=== PATIENT | female | born 1985 | race Caucasian/White ===

== ENCOUNTER 2018-06-14 07:12 | Inpatient (IN) | payer MEDICAID, OTHER ==
[~2018-06-14] VITALS: Ht 160 cm; Wt 127.8 kg
[~2018-06-14 07:12] MED LIST: PNV1TABL4 PO
[2018-06-14 07:42] VITALS: Ht 160 cm; Wt 127.8 kg
[2018-06-14 07:50] VITALS: BP 118/64; PULSE 99; RESP 20
[2018-06-14] MEDS ORDERED: OXYTOCIN 30 UNITS/LR 500 ML IV PRN ×2 (08:00→15:30)
[2018-06-14] MEDS ORDERED: METHYLERGONOVINE 0.2 MG INJ IM PRN ×2 (08:00→15:30)
[2018-06-14] MEDS ORDERED: MISOPROSTOL 200 MCG TAB PR PRN ×2 (08:00→15:30)
[2018-06-14] MEDS ORDERED: CEFAZOLIN 3 GM in DEXTROSE 5% 100 ML IV SCH (08:00)
[2018-06-14] MEDS ORDERED: CARBOPROST 250 MCG INJ IM PRN ×2 (08:00→15:30)
[2018-06-14] MEDS ORDERED: OXYTOCIN 30 UNITS/LR 500 ML IV SCH ×2 (08:00→15:15)
[2018-06-14] MEDS: LACTATED RINGER'S 1,000 ML IV SCH ×2 (08:13→10:19)
[2018-06-14] MEDS ORDERED: ONDANSETRON 4 MG INJ IV STA (09:36)
[2018-06-14] MEDS ORDERED: METOCLOPRAMIDE 10 MG INJ IV ONE (10:00)
[2018-06-14] MEDS ORDERED: FAMOTIDINE 20 MG INJ IV ONE (10:00)
--- NOTE | 2018-06-14 10:19 | HP ---
Date/Time of Note Date/Time of Note DATE: 06/14/18 TIME: 10:18 OB - History Hx of Present Free Text/Dictation term with prior c/s Care: Good Care Ultrasounds: Normal mid trimester US Obstetrical Complications: None Medical Complications: None Past Family/Social History * Past Medical, Surgical, Family and Obstetric Histories reviewed from chart. OB Admission Exam Vital Signs Vital Signs Vital Signs Date Temp Pulse Resp B/P (MAP) Pulse Ox O2 O2 Flow FiO2 Time Delivery Rate 06/14/18 97.9 99 20 118/64 Room Air 07:50 (82) Physical Exam HEENT: WNL Heart: Rhythm Normal Lungs: Clear, Equal Abdomen: WNL Extremities: Normal Reflexes: Normal Cervical Dilatation: None Effacement: 0% Station: Ballotable Membranes: Intact Heart Rate: 120's Accelerations: Accelerations Present Decelerations: No Decelerations Varibility: Marked Contractions on Admission: None Last 72 hours Lab Results CBC & BMP 06/14/18 08:00 OB Assessment/Plan Reason for admission: section Plan: Section FANTA MCCORMICK MD Jun 14, 2018 10:19
--- NOTE | 2018-06-14 10:23 | PREAC ---
Date/Time of Note Date/Time of Note DATE: 06/14/18 TIME: 10:22 Anesthesia Eval and Record Evaluation Time Pre-Procedure Interview DATE: 06/14/18 TIME: 10:22 Age 33 Sex female NPO: 8 hrs Preoperative diagnosis term labor, prev Csection Planned procedure repeat Csection Past Medical History Past Medical History: Includes GI: Morbid obesity Surgery & Anesthesia Issues No known issue Meds Anticoagulation: No Beta Vincent within 24 hr: No Reason Beta Vincent not given: Pt. not on B-Vincent Reported Medications Pnv Cmb#95/Ferrous Fumarate/Fa ( MULTIVITAMINS TABLET) 1 Each Tablet, 1 EACH PO DAILY 10/10/13 Current Medications Lactated Ringer's 1,000 ml @ 125 mls/hr Q8H IV Last administered on 06/14/18at 10:19; Admin Dose 125 MLS/HR; Start 06/14/18 at 07:48 Cefazolin Sodium 3 gm/Dextrose 100 ml @ 100 mls/hr ONCE IV ; Start 06/14/18 at 08:00 Oxytocin/Lactated Ringer's 500 ml @ 125 mls/hr POST IV ; Start 06/14/18 at 08:00 Oxytocin/Lactated Ringer's 500 ml @ 0 mls/hr ONCE PRN IV .VAGINAL BLEEDING; Start 06/14/18 at 08:00 Methylergonovine Maleate (Methergine) 0.2 mg ONCE PRN IM .VAGINAL BLEEDING; Start 06/14/18 at 08:00 Carboprost Tromethamine (Hemabate) 250 mcg ONCE PRN IM .VAGINAL BLEEDING; Start 06/14/18 at 08:00 Misoprostol (Cytotec) 1,000 mcg ONCE PRN MN .VAGINAL BLEEDING; Start 06/14/18 at 08:00 Meds reviewed: Yes Allergies Coded Allergies: No Known Allergy (Verified , 07/05/14) Allergies Reviewed: Yes Labs/Studies Labs Reviewed: Reviewed by anesthesiologist Result Diagram: 06/14/18 0800 Laboratory Tests 06/14/18 08:00 Blood Bank Test 06/14/18 08:00 Antibody Screen NEGATIVE Blood Type A POSITIVE Rh Immune Globulin Candidate NO test: Positive Pre-procedure Exam Last vitals Vital Signs Date Temp Pulse Resp B/P (MAP) Pulse Ox O2 O2 Flow FiO2 Time Delivery Rate 06/14/18 97.9 99 20 118/64 Room Air 07:50 (82) Airway: Adequate mouth opening, Adequate thyromental dist Mallampati: Mallampati III Teeth: Normal Lung: Normal Heart: Normal ASA Physical Status ASA physical status: 3 Emergency: None Planned Anesthetic Neuraxial: Spinal Planned Pain Management Sub-arachniod narcotics, Parenteral pain med, Other neuraxial med Pre-operative Attestations Prior to commencing anesthesia and surgery, the patient was re-evaluated, there was verification of: *The patient's identity *The results of appropriate recent lab work and preoperative vital signs *The above evaluation not changing prior to induction *Anesthetic plan, risk benefits, alternative and complications discussed with patient/family; questions answered; patient/family understands, accepts and wishes to proceed. JULIEN PUCKETT MD Jun 14, 2018 10:23
[2018-06-14] MEDS ORDERED: LABETALOL HCL 20MG INJ IV PRN (10:30)
[2018-06-14] MEDS ORDERED: FENTAnyl 50 MCG/ML VIAL IV PRN ×2 (10:30)
[2018-06-14] MEDS ORDERED: ONDANSETRON 4 MG INJ IV PRN ×2 (10:30)
[2018-06-14] MEDS ORDERED: LEVALBUTEROL (NEB) 1.25 MG/0.5 ML AMP HHN PRN (10:30)
[2018-06-14] MEDS ORDERED: NALOXONE (0.4 MG/ML) INJ IV PRN (10:30)
[2018-06-14] MEDS ORDERED: ZOLPIDEM 5 MG TAB PO PRN (10:30)
[2018-06-14] MEDS ORDERED: DIPHENHYDRAMINE 50 MG INJ IV PRN ×2 (10:30)
[2018-06-14] MEDS ORDERED: KETOROLAC 30 MG INJ IV PRN ×2 (10:30)
[2018-06-14] MEDS ORDERED: HYDROmorphONE 1 MG/5 ML IV SYRINGE IV PRN ×3 (10:30)
[2018-06-14] MEDS ORDERED: hydrALAzine 20 MG INJ IV PRN (10:30)
[2018-06-14] MEDS ORDERED: HYDROmorphONE 0.5 MG/0.5 ML SYG IV PRN ×2 (10:30)
[2018-06-14] MEDS ORDERED: EPINEPHrine 1 MG INJ ONE (10:31)
[2018-06-14] MEDS ORDERED: morphine SULFATE/PF (10 MG/10 ML) INJ ONE (10:31)
[2018-06-14] MEDS ORDERED: OXYTOCIN 10 UNIT INJ ONE (10:31)
--- NOTE | 2018-06-14 11:14 | OPR ---
Operative Report Planned Procedure Procedure date Jun 14, 2018 Procedure(s) repeat c/s and btl Performed by see signature line Reliner: SELVIN PIERRE M.D. Pre-procedure diagnosis term and multiparity [id number] Anesthesia Type: [id number] spinal Post-Procedure Post-procedure diagnosis same as pre op Findings Live Baby [], Apgars [] and [], weight [], position [], [] presentation []cord. Estimated Blood Loss: 600 - 700 mls Specimen(s) none Grafts/Implant(s) none Complication(s) none Pt Condition post procedure: stable Disposition: PACU Procedure Description Under satisfactory spinal anesthesia, the patient was prepped and draped and placed in a supine position, tilted to the left. Pfannenstiel incision was made, carried through the subcutaneous tissue. Bleeders brought under control with electrocautery. Fascia incised to the length of the incision. Rectus muscles from the fascia, divided midline. Peritoneum exposed, entered through a transverse incision. Exploration of abdomen revealed gravid uterus. Bladder flap was developed. Transverse incision was made in the lower segment of the uterus. Amniotic sac ruptured. [clear] amniotic fluid noted. [] Nasal oropharyngeal suction was performed. The baby was handed to the team for immediate attention. The placenta was delivered manually intact. Uterine cavity was cleaned with wet sponge and drainage established. Uterus closed in 2 layers using [one monocryl] in continuous fashion. Peritoneal cavity irrigated with warm saline. Right tube and left tube were clamped and tied with o plain tie twice and cut. Sponge, needle and instrument count reported to be correct. Fascia closed with one monocryl , and skin closed with doris. Estimated blood loss [700]mL. FANTA MCCORMICK MD Jun 14, 2018 11:14
--- NOTE | 2018-06-14 14:29 | PAC ---
Date/Time of Note Date/Time of Note DATE: 06/14/18 TIME: 14:29 Post-Anesthesia Notes Post-Anesthesia Note Last documented vital signs Vital Signs Date Temp Pulse Resp B/P (MAP) Pulse Ox O2 O2 Flow FiO2 Time Delivery Rate 06/14/18 97.9 99 20 118/64 Room Air 07:50 (82) Activity: WNL Respiratory function: WNL Cardiovascular function: WNL Mental status: Baseline Pain reasonably controlled: Yes Hydration appropriate: Yes Nausea/Vomiting absent: Yes JULIEN PUCKETT MD Jun 14, 2018 14:29
[2018-06-14 15:00] VITALS: BP 121/58; PULSE 79; RESP 18
[2018-06-14] MEDS ORDERED: LACTATED RINGER'S 1,000 ML IV SCH (15:15)
[2018-06-14] MEDS ORDERED: NA PHOSPHATE/BIPHOS 133 ML ENEMA PR PRN (15:30)
[2018-06-14] MEDS ORDERED: HYDROCODONE/APAP (5/325) TAB PO PRN (15:30)
[2018-06-14] MEDS ORDERED: LANOLIN HPA 1 PKT TOP PRN (15:30)
[2018-06-14] MEDS ORDERED: NACL 0.9% 3 ML SYG IV SCH (15:30)
[2018-06-14 20:00] VITALS: BP 110/63; PULSE 90; RESP 20
[2018-06-15] VITALS: BP 106/55; PULSE 89; RESP 18
[2018-06-15] MEDS: LACTATED RINGER'S 1,000 ML IV SCH (01:11)
[2018-06-15 04:04] VITALS: BP 99/56; PULSE 87; RESP 20
[2018-06-15 08:55] VITALS: BP 119/60; PULSE 88; RESP 20
[2018-06-15 11:50] VITALS: BP 102/51; PULSE 84; RESP 19
[2018-06-15] MEDS: IBUPROFEN 800 MG TAB PO SCH ×2 (14:00→21:48)
[2018-06-15 16:15] VITALS: BP 100/64; PULSE 103; RESP 21
[2018-06-15 19:35] VITALS: BP 114/60; PULSE 94; RESP 19
[2018-06-16 03:35] VITALS: BP 128/67; PULSE 80; RESP 18
[2018-06-16] MEDS: IBUPROFEN 800 MG TAB PO SCH ×2 (05:40→14:00)
[2018-06-16 08:00] VITALS: BP 119/59; PULSE 83; RESP 20
--- NOTE | 2018-06-16 11:10 | DS ---
Date/Time of Note Date/Time of Note DATE: 06/16/18 TIME: 11:08 Discharge Summary Admission/Discharge Info Admit Date/Time Jun 14, 2018 at 07:30 Discharge Date/Time Discharge Diagnosis term preg Patient Condition: Stable Hospital Course unremarkable Home Meds Reported Medications Pnv Cmb#95/Ferrous Fumarate/Fa ( MULTIVITAMINS TABLET) 1 Each Tablet, 1 EACH PO DAILY 10/10/13 Primary Care Provider Care Physician No Primary Pending Labs Laboratory Tests Test 06/15/18 11:31 White Blood Count 7.0 10^3/ul (4.8-10.8) Red Blood Count 4.08 10^6/ul (4.20-5.40) Hemoglobin 10.4 g/dl (12.0-16.0) Hematocrit 32.8 % (37.0-47.0) Mean Corpuscular Volume 80.4 fl (82.0-101.0) Mean Corpuscular Hemoglobin 25.5 pg (29.0-33.0) Mean Corpuscular Hemoglobin Concent 31.7 g/dl (32.0-37.0) Red Cell Distribution Width 14.5 % (11.5-14.5) Platelet Count 181 10^3/UL (140-415) Mean Platelet Volume 9.2 fl (7.4-10.4) Immature Granulocytes % 0.100 % (0.001-0.429) Neutrophils % 79.3 % (39.0-77.0) Lymphocytes % 13.2 % (15.0-51.0) Monocytes % 7.0 % (0.0-11.0) Eosinophils % 0.3 % (0.0-7.0) Basophils % 0.1 % (0.0-2.0) Nucleated Red Blood Cells % 0.0 /100WBC (0.0-0.0) Immature Granulocytes # 0.010 10^3/ul (0.0-0.031) Neutrophils # 5.5 10^3/ul (1.6-7.5) Lymphocytes # 0.9 10^3/ul (0.8-2.9) Monocytes # 0.5 10^3/ul (0.3-0.9) Eosinophils # 0.0 10^3/ul (0.0-0.5) Basophils # 0.0 10^3/ul (0.0-0.1) Nucleated Red Blood Cells # 0.0 10^3/ul (0.0-0.0) FANTA MCCORMICK MD Jun 16, 2018 11:10
[2018-06-16 15:56] VITALS: BP 119/64; PULSE 78; RESP 16
[2018-06-16 16:16] VITALS: BP 113/62; PULSE 85; RESP 19
[2018-06-17] MEDS ORDERED: DIPHTH/TET/ACEL PERTUSS (ADULT) 0.5 ML VIAL IM* ONE (09:00)
[2018-06-17] MEDS ORDERED: MEASLES,MUMPS,RUBELLA VACCINE INJ SC* ONE (09:00)
--- NOTE | 2018-06-20 11:22 | DELSUM ---
Delivery Summary A-C Datetime Report Generated by CPN: 06/20/2018 11:20 DELIVERY PERSONNEL Grades 6 Through 8 Teacher: Ordona, May MATERNAL INFORMATION Delivery Anesthesia: Spinal Medications in Delivery: see anesthesia Placenta Cultured: No Maternal Complications: Other Other Maternal Complications: PREVIOUS C/SECTION X2 LABOR SUMMARY EDC: 06/15/2018 00:00 No. Babies in Womb: 1 Attempted: No Labor Anesthesia: None LABOR INFORMATION Reason for Induction: Not Applicable Oxytocin: N/A Group B Beta Strep: Positive Antibiotics # of Doses: 1 Antibiotics Time of Last Dose: 06/14/2018 10:44 Steroids Given: None Reason Steroids Not Administered: Not Applicable MEMBRANES Membranes Rupture Method: Artificial Rupture of Membranes: 06/14/2018 10:56 Length of Rupture (hr): 0.02 Amniotic Fluid Color: Clear Amniotic Fluid Amount: Small Amniotic Fluid Odor: None STAGES OF LABOR Stage 3 hr: 0 Stage 3 min: 1 CSECTION DELIVERY Primary Indication: Repeat Elective Secondary Indication: Other Other Secondary Indication: tubal ligation CSection Urgency: Elective CSection Incidence: Repeat Labor: No Labor Elective: N/A CSection Incision: Lower Uterine Transverse Sterilization Procedure: [place] BABY A INFORMATION Delivery Date/Time: 06/14/2018 10:57 Method of Delivery: Born in Route : No : N/A Forceps: N/A Vacuum Extraction: N/A Shoulder Dystocia : N/A SHOULDER DYSTOCIA BABY A Infant Delivery Date/Time: 06/14/2018 10:57 PRESENTATION/POSITION BABY A Presentation: Cephalic Cephalic Presentation: Vertex Vertex Position: Right Occipital Anterior Breech Presentation: N/A PLACENTA INFORMATION BABY A Placenta Delivery Time : 06/14/2018 10:58 Placenta Method of Delivery: Manual Removal Placenta Status: Delivered SCORES BABY A Heart Rate 1 min: >100 bpm Resp Effort 1 min: Good Cry Reflex Irritability 1 min: Cough/Sneeze/Pulls Away Muscle Tone 1 min: Active Motion Color 1 min: Body [place], Extremit Blue Resuscitation Effort 1 min: Tactile Stimulation SCORE 1 MIN: 9 Heart Rate 5 min: >100 bpm Resp Effort 5 min: Good Cry Reflex Irritability 5 min: Cough/Sneeze/Pulls Away Muscle Tone 5 min: Active Motion Color 5 min: Body [place], Extremit Blue Resuscitation Effort 5 min: Tactile Stimulation SCORE 5 MIN: 9 INFANT INFORMATION BABY A Gestational Age at Delivery: 39.6 Gestational Status: Full Term- 39- 40.6 Weeks Outcome : Liveborn Infant Condition : Stable Sex: Female IDENTIFICATION/MEDS BABY A ID Band Number: [id number] ID Band Location: Right Leg; Left Arm Sensor Applied: Yes Sensor Number: [id number] Sensor Location : Cord Clamp Vitamin K Given : Not Given Erythromycin Given: Not Given WEIGHT/LENGTH BABY A Infant Birthweight (gm): 3405 Infant Weight (lb): 7 Infant Weight (oz): 8 Infant Length (in): 19.00 Length (cm): 48.26 CORD INFORMATION BABY A No. Cord Vessels: 3 Nuchal Cord : N/A Cord Blood Taken: Yes Infant Suction: Mouth; Nose ASSESSMENT BABY A Complications: None Physical Findings at Delivery: Within Normal Limits Infant Respirations: Appears Normal Bankruptcy Judge/ALS Called : No Infant Care By: EDNA Transferred To: Remains with Mother
== END 2018-06-16 18:24 | disposition home or self-care (01) | DRG 785 ==
LOC: L-D 07:30 → PP1 15:00
PROVIDERS: ADMIT Obstetrics & Gynecology; ATTEND Obstetrics & Gynecology
PROC: 0UB70ZZ Excision of Bilateral Fallopian Tubes, Open Approach (ICD-10-PCS; 2018-06-14)
PROC: 4A1HXCZ Monitoring of Products of Conception, Cardiac Rate, External Approach (ICD-10-PCS; 2018-06-14)
PROC: 10D00Z1 Extraction of Products of Conception, Low, Open Approach (ICD-10-PCS; principal; 2018-06-14 15:30)
DX: O34.219 Maternal care for unspecified type scar from previous cesarean delivery (principal); O99.214 Obesity complicating childbirth; E66.01 Morbid (severe) obesity due to excess calories; Z3A.39 39 weeks gestation of pregnancy; Z37.0 Single live birth; Z30.2 Encounter for sterilization
CPT/HCPCS: 85025; 85610; 85730; 86592; 86850; 86900; 86901; 87340; 88302; 99464; J0171; J0690; J1200; J1885; J2274; J2405; J2590; J2765; J7120